=== PATIENT | female | born 1990 | race Caucasian/White ===

== ENCOUNTER 2017-08-28 12:38 | Emergency (ER) | payer OTHER ==
[~2017-08-28] VITALS: Ht 167.6 cm; Wt 96.8 kg
[2017-08-28 12:47] VITALS: BP 128/83
== END 2017-08-28 13:55 | disposition home or self-care (01) ==
LOC: ED 13:40
DX: J01.00 Acute maxillary sinusitis, unspecified (principal)
CPT/HCPCS: 93005; 99283